=== PATIENT | male | born 1955 | race Caucasian/White ===

== ENCOUNTER 2020-01-15 15:12 | Emergency (ER) | payer OTHER ==
[~2020-01-15] VITALS: Ht 177.8 cm; Wt 95.0 kg
[~2020-01-15 15:12] MED LIST: CALCIUM CHLORIDE 10%, 10ML SYR ONE; EPINEPHRINE SYRINGE 0.1 MG/ML, 10ML ONE
[2020-01-15] MEDS: EPINEPHRINE SYRINGE 0.1 MG/ML, 10ML IVPush PRN ×9 (15:16→16:39)
--- NOTE | 2020-01-15 15:22 | NUR ---
151, UNIDENFIED MALE ARRIVED (NAME DOROTA APPROX 65-70. FOUND IN CAR WITH . "ARRESTED IN CAR, NOT FEELING WELL LAST COUPLE OF DAYS, PT FOUND TO BE IN PEA, CPR INITIATED BY EMS, 2 ROUNDS OF EPI, SHOCKS X2 AT 120 AND 150J GIVEN. PT FOUND TO BE IN V FIB, PT ALSO GIVEN 2 MG OF NARCAN WITHOUT AFFECT. PT ARRIVES WITH I/O IN R VICENTE #5 LMA, UNKNOWN HX AND UNKNOWN ALLERGIES." PT ARRIVES WITH CPR IN PROGRESS. DR JOHNSON AT BEDSIDE. BS CHECK HERE 221. SEE CODE BLUE SHEET.
--- NOTE | 2020-01-15 15:27 | NUR ---
PT WITH 1ST LITER INITIATED BY EMS INFUSING IN I/O SITE
[2020-01-15] MEDS ORDERED: SODIUM CHLORIDE 0.9% 1,000ML IVBOLUS ONE (16:00)
--- NOTE | 2020-01-15 16:16 | NUR ---
1609 PT LOST PULSES, CPR INITIATED. 3RD LITER NS INFUSING AT THIS TIME. EPI GTT TO BE STARTED. AMIO GTT INFUSING.
--- NOTE | 2020-01-15 16:19 | NUR ---
PORTABLE CXR IN PROCESS
[2020-01-15 16:21] LABS: BASOPHILS # (AUTO) 0.04 x10^3/uL (0-0.1); BASOPHILS % (AUTO) 0 % (0-1); EOSINOPHILS # (AUTO) 0.05 x10^3/uL (0-0.4); EOSINOPHILS % (AUTO) 1 % (1-7); LYMPHOCYTES # (AUTO) 3.44 x10^3/uL (1-3.4); LYMPHOCYTES % (AUTO) 33 % (22-44); MD NO; MEAN CORPUSCULAR HEMOGLOBIN 31.3 pg (27.5-34.5); MEAN CORPUSCULAR HGB CONC 33.3 g/dL (33.2-36.2); MEAN PLATELET VOLUME 9.2 fL (7.4-10.4); MONOCYTES # (AUTO) 1.05 x10^3/uL (0.2-0.8); MONOCYTES % (AUTO) 10 % (2-9); NEUTROPHILS # (AUTO) 5.75 x10^3/uL (1.8-6.8); NEUTROPHILS % (AUTO) 56 % (42-75); PLATELET COUNT 209 x10^3/uL (130-400); RED BLOOD COUNT 5.15 x10^6/uL (4.38-5.82); RED CELL DISTRIBUTION WIDTH 14.7 % (9.4-14.8)
[2020-01-15] MEDS ORDERED: AMIODARONE 50 MG/ML, 3ML ONE ×2 (16:22)
[2020-01-15] MEDS ORDERED: CALCIUM CHLORIDE 13.6 MEQ/10 ML ONE (16:22)
[2020-01-15] MEDS ORDERED: SODIUM BICARB 8.4%, 50ML SYRINGE ONE ×2 (16:22→20:23)
[2020-01-15] MEDS ORDERED: EPINEPHRINE SYRINGE 0.1 MG/ML, 10ML ONE ×3 (16:22→20:23)
[2020-01-15] MEDS ORDERED: NALOXONE 1 MG/ML, 2ML ONE (16:22)
[2020-01-15 16:26] LABS: ALANINE AMINOTRANSFERASE 53 U/L (12-78); ALBUMIN 3.5 g/dL (3.4-5.0); ANION GAP 11 mmol/L (5-15); CALCIUM 7.9 mg/dL (8.5-10.1); CHLORIDE 106 mmol/L (98-107); CREATININE 1.24 mg/dL (0.7-1.3)
[2020-01-15 16:27] LABS: D-DIMER 2.25 ug/mlFEU (0.00-0.52); INTERNATIONAL NORMALIZED RATIO 1.73 (0.93-1.1); PROTHROMBIN TIME 17.9 Seconds (9.6-11.5)
[2020-01-15 16:30] LABS: ALKALINE PHOSPHATASE 92 U/L (45-117); BILIRUBIN,TOTAL 0.4 mg/dL (0.2-1.0); CREATINE KINASE, TOTAL 86 U/L (39-308); TOTAL PROTEIN 6.6 g/dL (6.4-8.2); TROPONIN I < 0.015 ng/mL (0.000-0.045)
[2020-01-15] MEDS ORDERED: AMIODARONE 50 MG/ML, 3ML IVPush ONE (16:30)
[2020-01-15] MEDS ORDERED: AMIODARONE 450 MG in DEXTROSE 5% 241 ML IV PRN (16:30)
[2020-01-15] MEDS ORDERED: CALCIUM CHLORIDE 10%, 10ML SYR IVPush ONE ×2 (16:30)
--- NOTE | 2020-01-15 16:32 | NUR ---
SITE AROUND I/O FIRM. FLUIDS STOPPED, I/O TO BE PULLED.
--- NOTE | 2020-01-15 16:44 | NUR ---
DR BOLAND AT BEDSIDE TO EVAL PT
--- NOTE | 2020-01-15 16:52 | NUR ---
WAITING FOR CENTRAL LINE PRIOR TO INITIATING COOLING MEASURES. PT CONT WITH INTERMITTENT BODY TWITCHES. DR JOHNSON AWARE.
[2020-01-15] MEDS ORDERED: PROPOFOL 100 ML IV PRN (16:54)
[2020-01-15] MEDS ORDERED: ARTIFICIAL TEARS OINT 3.5 GM EACHEYE PRN (17:00)
[2020-01-15] MEDS ORDERED: SODIUM CHLORIDE FLUSH 10ML SYR IVF PRN (17:00)
[2020-01-15] MEDS ORDERED: FAMOTIDINE 20 MG/2 ML IVPush ONE (17:00)
[2020-01-15] MEDS ORDERED: POTASSIUM CHLORIDE PMX 100 ML IV ONE (17:00)
[2020-01-15] MEDS ORDERED: FUROSEMIDE 40 MG/4 ML IV ONE (17:00)
[2020-01-15] MEDS ORDERED: ASPIRIN 81 MG TABLET CHEW PO ONE (17:00)
[2020-01-15] MEDS ORDERED: EPINEPHRINE 5 MG in SODIUM CHLORIDE 0.9% 245 ML IV PRN (17:00)
--- NOTE | 2020-01-15 17:06 | NUR ---
DR JOHNSON AT BEDSIDE FOR CENTRAL LINE PLACEMENT
[2020-01-15] MEDS ORDERED: PROPOFOL 100 ML IV ONE (17:07)
[2020-01-15] MEDS ORDERED: MIDAZOLAM 1 MG/ML, 2ML ONE (17:12)
--- NOTE | 2020-01-15 17:13 | NUR ---
DISCUSSED WITH DR JOHNSON GIVING PT VERSED. V/O FOR 2 MG RECEIVED.
[2020-01-15] MEDS ORDERED: CODE BLUE RESPONSE XX ONE (17:19)
--- NOTE | 2020-01-15 17:26 | NUR ---
DR JOHNSON AT BEDSIDE TO PLACE CENTRAL LINE PLACEMENT.
[2020-01-15 17:32] LABS: MICROSCOPIC INDICATED
--- NOTE | 2020-01-15 17:42 | NUR ---
PORTABLE CXR COMPLETED . PT CONT WITH BODY TWITCHING.
--- NOTE | 2020-01-15 17:50 | NUR ---
PT TO CT VIA [facility]. PTS DAUGHTER AT BEDSIDE WITH NOLAN QUINTERO.
--- NOTE | 2020-01-15 17:51 | NUR ---
RECEIVED VERBAL "OK TO USE CENTRAL LINE"
[2020-01-15] MEDS ORDERED: CEFTRIAXONE PMX 1GM/50ML 50 ML IVPB ONE (18:00)
[2020-01-15] MEDS ORDERED: MIDAZOLAM 1 MG/ML, 2ML IVPush ONE (18:00)
--- NOTE | 2020-01-15 18:00 | NUR ---
DISCUSSED WITH DR JOHNSON THAT PT RECEIVED A TOTAL OF 2500CC NS. 3RD LITER NOT COMPLETED. NOT TO INFUSE AT THIS TIME R/T PT WITH HX OF CHF.
--- NOTE | 2020-01-15 18:08 | NUR ---
PT RETURN TO ROOM FROM CT. RETURNED TO MONITORING EQUIPMENT
--- NOTE | 2020-01-15 18:09 | NUR ---
PROPORFOL INCREASED TO 15MCG/MIN
[2020-01-15] MEDS ORDERED: OMNIPAQUE 350 MG/ML, 75ML BOTTLE ONE (18:11)
--- NOTE | 2020-01-15 18:20 | NUR ---
PARTS CHASER AT BEDSIDE TO DRAW LABS, INCLUDING BLOOD CULTURES.
[2020-01-15] MEDS ORDERED: CEFTRIAXONE PMX 1GM/50ML 50 ML ONE (18:25)
--- NOTE | 2020-01-15 18:40 | NUR ---
PTS DAUGHTER AT BEDSIDE. PT WITH SEIZURE HX. HAD SEIZURE TODAY (DID NOT FALL THAT SHE IS AWARE OF) CHF AND CARDIAC ARREST 4 YRS AGO. SEEN AT [facility].
--- NOTE | 2020-01-15 18:50 | NUR ---
DR JOHNSON AT BEDSIDE TO DISCUSS PT CONDITION WITH PTS DAUGHTER CHAY.
--- NOTE | 2020-01-15 18:50 | NUR ---
RECEIVED REPORT FROM ESSENCE SEVILLA. BED ASSIGNED. PRIMARY RN WILL GIVE REPORT TO CCU
--- NOTE | 2020-01-15 18:59 | NUR ---
PTS WALLET WITH $46, MULTIPLE ID'S, CREDIT CARDS, KEYS, BELT, CLOTHING GIVEN TO FAMILY
--- NOTE | 2020-01-15 19:12 | NUR ---
REPORT CALLED TO MARION LOWRY. POC DISCUSSED
[2020-01-15] MEDS ORDERED: SODIUM BICARB IV SCH (19:30)
[2020-01-15] MEDS ORDERED: SODIUM CHLORIDE 0.9%, 500ML IVBOLUS ONE (19:30)
[2020-01-15 19:32] VITALS: BP 98/59
--- NOTE | 2020-01-15 19:47 | NUR ---
PATIENT READY TO GO UP TO CCU. NOTICED PATIENT ON VFIB. CODE BLUE ACTIVATED.
--- NOTE | 2020-01-15 19:48 | NUR ---
CPR INITIATED. ERP TALKING TO FAMILY AT THIS TIME.
[2020-01-15] MEDS ORDERED: SODIUM BICARB 8.4%, 50ML SYRINGE IVPush ONE (20:00)
--- NOTE | 2020-01-15 20:12 | NUR ---
SEE CODE SHEET. TIME OF 2012
--- NOTE | 2020-01-15 20:27 | NUR ---
called dru [place].
--- NOTE | 2020-01-15 20:31 | NUR ---
biomedical photographer dru is coming.
--- NOTE | 2020-01-15 20:37 | NUR ---
called donor network.
--- NOTE | 2020-01-15 20:54 | NUR ---
tissue donor network, accecpted per John. Addendum: 01/15/20 at 2054 by ZACKARY ref [id number]
[2020-01-15] MEDS ORDERED: ATORVASTATIN 40 MG TABLET PO SCH (21:00)
--- NOTE | 2020-01-15 21:45 | NUR ---
FAMILY LEFT. PER ME NOT A CORONERS CASE. PATIENT PLACED IN BODY BAG AND MOVED TO [facility]. NO MORTUARY AT THIS TIME.
== END 2020-01-15 22:07 | disposition expired ==
LOC: EDBD 15:12 → EDSEX 15:12 → ED 18:09 → EDIP 18:47 → UNDOADMIN 18:47 → ED 22:01
DX: S06.5X0A Traumatic subdural hemorrhage without loss of consciousness, initial encounter (principal); I46.9 Cardiac arrest, cause unspecified; I50.9 Heart failure, unspecified; J15.9 Unspecified bacterial pneumonia; J96.90 Respiratory failure, unspecified, unspecified whether with hypoxia or hypercapnia; N30.00 Acute cystitis without hematuria; R07.9 Chest pain, unspecified; Z11.59 Encounter for screening for other viral diseases; X58.XXXA Exposure to other specified factors, initial encounter; Y93.89 Activity, other specified; Y92.89 Other specified places as the place of occurrence of the external cause; Y99.8 Other external cause status
CPT/HCPCS: 31500; 36556; 36600; 70450; 71045; 71275; 80053; 80185; 81001; 82375; 82550; 82803; 82962; 83735; 83880; 84484; 85025; 85379; 85610; 85730; 87040; 87070; 87086; 87205; 87635; 92950; 93005; 96365; 96366; 96368; 96375; 96376; 99291; 99292; J0171; J0282; J0696; J2250; J2310; J2704; J7030; J7040; J7050; J7060; Q9967; 94002; 99285